=== PATIENT | male | born 1995 | race American Indian/Alaskan Native ===

== ENCOUNTER 2018-12-09 14:36 | Emergency (ER) | payer OTHER ==
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
[2018-12-09 15:35] VITALS: BP 139/81
--- NOTE | 2018-12-09 16:25 | XRay Report ---
PROCEDURE: XR SPINE CERVICAL 2-3V TECHNIQUE: Cervical spine examination, 3 views HISTORY: neck pain COMPARISONS: None FINDINGS: There is no compression fracture or spondylolisthesis. No significant degenerative change is present. The visualized prevertebral soft tissues are negative. No evidence of disc narrowing. IMPRESSION: No acute skeletal pathology in the cervical spine This document is electronically signed by Gato Petit MD., December 09 2018 04:23:22 PM ET
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
== END 2018-12-09 18:02 | disposition home or self-care (01) ==
LOC: ED 14:36
DX: S16.1XXA Strain of muscle, fascia and tendon at neck level, initial encounter (principal); V89.2XXA Person injured in unspecified motor-vehicle accident, traffic, initial encounter; Y93.89 Activity, other specified; Y92.488 Other paved roadways as the place of occurrence of the external cause; Y99.8 Other external cause status
CPT/HCPCS: 72040; 99283